=== PATIENT | male | born 1975 | race Two or more races ===

== ENCOUNTER 2022-04-20 02:34 | Emergency (ER) | payer MEDICAID ==
[~2022-04-20] VITALS: Ht 177.8 cm; Wt 60.0 kg
[2022-04-20 03:01] VITALS: BP 189/112
[2022-04-20] MEDS ORDERED: cloNIDine HCL 0.1 MG TAB PO ONE (03:30)
== END 2022-04-20 05:30 | disposition left against medical advice (07) ==
LOC: ER 02:34
DX: R20.0 Anesthesia of skin (principal); Z53.21 Procedure and treatment not carried out due to patient leaving prior to being seen by health care provider
CPT/HCPCS: 70450